=== PATIENT | female | born 1985 | race Caucasian/White ===

== ENCOUNTER 2016-08-03 18:20 | Emergency (ER) | payer BC ==
[2016-08-03] MEDS ORDERED: SODIUM CHLORIDE 0.9% 1,000 ML IV ONE (18:32)
[2016-08-03] MEDS ORDERED: ONDANSETRON 4 MG/2 ML VIAL IVP STA (18:49)
[2016-08-03] MEDS ORDERED: ONDANSETRON 4 MG/2 ML VIAL ONE (18:53)
== END 2016-08-03 20:03 | disposition home or self-care (01) ==
DX: O99.612 Diseases of the digestive system complicating pregnancy, second trimester (principal); K52.9 Noninfective gastroenteritis and colitis, unspecified; Z3A.23 23 weeks gestation of pregnancy

== ENCOUNTER 2016-08-31 14:50 | Outpatient (CLI) | payer BC | END 2016-08-31 14:51 | disposition home or self-care (01) | DX: E03.9 Hypothyroidism, unspecified (principal) ==

== ENCOUNTER 2016-09-08 09:10 | Outpatient (CLI) | payer BC | END 2016-09-08 09:11 | disposition home or self-care (01) | DX: E03.9 Hypothyroidism, unspecified (principal); Z36 Encounter for antenatal screening of mother ==

== ENCOUNTER 2016-09-19 13:59 | Outpatient (CLI) | payer BC ==
[2016-09-19] MEDS ORDERED: ONDANSETRON ODT 4 MG TABLET TL PRN (14:49)
== END 2016-09-19 16:50 | disposition home or self-care (01) ==
DX: O98.813 Other maternal infectious and parasitic diseases complicating pregnancy, third trimester (principal); A08.4 Viral intestinal infection, unspecified; Z3A.29 29 weeks gestation of pregnancy
CPT/HCPCS: 81001; 99212; Q0162

== ENCOUNTER 2016-09-26 21:28 | Outpatient (CLI) | payer BC | END 2016-09-26 21:29 | disposition home or self-care (01) | DX: O23.43 Unspecified infection of urinary tract in pregnancy, third trimester (principal) ==

== ENCOUNTER 2016-11-02 08:52 | Outpatient (CLI) | payer BC | END 2016-11-02 23:59 | DX: Z36 Encounter for antenatal screening of mother (principal) ==

== ENCOUNTER 2016-11-11 08:48 | Outpatient (CLI) | payer BC ==
[~2016-11-11 08:48] MED LIST: SODIUM CHLORIDE FLUSH 0.9% 10 ML SYRINGE IVP ONE
[2016-11-11] MEDS ORDERED: TERBUTALINE 1 MG/ML VIAL SUBQ PRN (09:02)
[2016-11-11] MEDS ORDERED: ONDANSETRON 4 MG/2 ML VIAL IVP PRN (09:02)
[2016-11-11] MEDS ORDERED: SODIUM CHLORIDE FLUSH 0.9% 10 ML SYRINGE IVP PRN (09:03)
[2016-11-11] MEDS ORDERED: fentaNYL 100 MCG/2 ML VIAL IVP PRN (09:03)
[2016-11-11] MEDS ORDERED: SODIUM CHLORIDE FLUSH 0.9% 10 ML SYRINGE IVP SCH (14:00)
== END 2016-11-11 12:05 | disposition home or self-care (01) ==
DX: O32.1XX0 Maternal care for breech presentation, not applicable or unspecified (principal); Z3A.37 37 weeks gestation of pregnancy

== ENCOUNTER 2016-11-22 03:46 | Inpatient (IN) | payer BC ==
[2016-11-22] MEDS ORDERED: SODIUM CHLORIDE FLUSH 0.9% 10 ML SYRINGE IVP ONE (04:12)
[2016-11-22] MEDS ORDERED: fentaNYL 100 MCG/2 ML VIAL IVP PRN (04:13)
[2016-11-22] MEDS ORDERED: ONDANSETRON 4 MG/2 ML VIAL IVP PRN ×2 (04:13→07:59)
[2016-11-22] MEDS ORDERED: PENICILLIN G POTASSIUM 5,000,000 UNIT in SODIUM CHLORIDE 0.9% MINIBAG 100 ML IV SCH (04:13)
[2016-11-22] MEDS ORDERED: OXYTOCIN/LACTATED RINGERS 0 ML IV ONE (04:30)
[2016-11-22] MEDS: LACTATED RINGERS 1,000 ML IV SCH (04:35)
[2016-11-22] MEDS ORDERED: TERBUTALINE 1 MG/ML VIAL SUBQ ONE (04:40)
[2016-11-22] MEDS ORDERED: PENICILLIN G POTASSIUM 2,500,000 UNIT in SODIUM CHLORIDE 0.9% 100ML 100 ML IV SCH (05:00)
[2016-11-22] MEDS ORDERED: OXYTOCIN 10 UNIT/ML VIAL IV ONE (05:15)
[2016-11-22] MEDS ORDERED: SUCCINYLCHOLINE 200 MG/10 ML VIAL IVP ONE (05:15)
[2016-11-22] MEDS ORDERED: ceFAZolin 1 GM VIAL IV ONE (05:15)
[2016-11-22] MEDS ORDERED: fentaNYL 100 MCG/2 ML VIAL IVP ONE ×2 (05:15→08:00)
[2016-11-22] MEDS ORDERED: PROPOFOL 200 MG/20 ML VIAL IVP ONE (05:15)
[2016-11-22] MEDS: MEPERIDINE 50 MG/ML SYRINGE ONE ×2 (06:12→06:25)
[2016-11-22] MEDS ORDERED: LACTATED RINGERS 1,000 ML IV ONE ×2 (06:30→06:40)
[2016-11-22] MEDS ORDERED: fentaNYL 100 MCG/2 ML VIAL ONE (06:47)
[2016-11-22] MEDS ORDERED: MAGNESIUM HYDROXIDE 2,400 MG/30 ML UDC PO PRN (06:58)
[2016-11-22] MEDS ORDERED: OXYTOCIN/LACTATED RINGERS 250 ML IV ONE (06:58)
[2016-11-22] MEDS ORDERED: ONDANSETRON 4 MG/2 ML VIAL ONE (07:56)
[2016-11-22] MEDS: SODIUM CHLORIDE FLUSH 0.9% 10 ML SYRINGE IVP PRN ×2 (08:05→12:41)
[2016-11-22] MEDS: CITALOPRAM 10 MG TABLET PO SCH (11:39)
[2016-11-22] MEDS: THYROID 60 MG TABLET PO SCH (11:39)
[2016-11-22] MEDS: CELECOXIB 100 MG CAPSULE PO SCH ×2 (11:40→23:24)
[2016-11-22] MEDS: ACETAMINOPHEN 500 MG TABLET PO SCH ×2 (11:40→19:51)
[2016-11-22] MEDS: DOCUSATE SODIUM 100 MG CAPSULE PO SCH ×2 (11:41→21:23)
[2016-11-22] MEDS: oxyCODONE 5 MG TABLET PO PRN ×3 (12:40→21:22)
[2016-11-22] MEDS: SIMETHICONE CHEW 80 MG TABLET PO SCH ×2 (14:31→23:24)
[2016-11-23] MEDS: oxyCODONE 5 MG TABLET PO PRN ×5 (04:24→20:40)
[2016-11-23] MEDS: ACETAMINOPHEN 500 MG TABLET PO SCH ×3 (04:38→20:40)
[2016-11-23] MEDS: SIMETHICONE CHEW 80 MG TABLET PO SCH ×3 (08:36→20:40)
[2016-11-23] MEDS: DOCUSATE SODIUM 100 MG CAPSULE PO SCH ×2 (08:37→20:40)
[2016-11-23] MEDS: THYROID 60 MG TABLET PO SCH (08:37)
[2016-11-23] MEDS: CELECOXIB 100 MG CAPSULE PO SCH ×2 (08:37→20:40)
[2016-11-23] MEDS: CITALOPRAM 10 MG TABLET PO SCH (08:37)
[2016-11-23] MEDS: LACTATED RINGERS 1,000 ML IV SCH (16:28)
[2016-11-24] MEDS: ACETAMINOPHEN 500 MG TABLET PO SCH (04:10)
[2016-11-24] MEDS: oxyCODONE 5 MG TABLET PO PRN ×2 (04:10→08:54)
[2016-11-24] MEDS: SIMETHICONE CHEW 80 MG TABLET PO SCH (06:18)
[2016-11-24] MEDS: THYROID 60 MG TABLET PO SCH (06:18)
[2016-11-24] MEDS: CITALOPRAM 10 MG TABLET PO SCH (08:53)
[2016-11-24] MEDS: DOCUSATE SODIUM 100 MG CAPSULE PO SCH (08:54)
[2016-11-24] MEDS: CELECOXIB 100 MG CAPSULE PO SCH (08:54)
== END 2016-11-24 10:05 | disposition home or self-care (01) | DRG 765 ==
PROC: 10S07ZZ Reposition Products of Conception, Via Natural or Artificial Opening (ICD-10-PCS; 2016-11-22)
PROC: 10D00Z1 Extraction of Products of Conception, Low, Open Approach (ICD-10-PCS; principal; 2016-11-22 05:00)
DX: O32.3XX0 Maternal care for face, brow and chin presentation, not applicable or unspecified (principal); O98.313 Other infections with a predominantly sexual mode of transmission complicating pregnancy, third trimester; O76 Abnormality in fetal heart rate and rhythm complicating labor and delivery; O62.3 Precipitate labor; O99.284 Endocrine, nutritional and metabolic diseases complicating childbirth; E03.9 Hypothyroidism, unspecified; O99.344 Other mental disorders complicating childbirth; F41.8 Other specified anxiety disorders; A60.00 Herpesviral infection of urogenital system, unspecified; O99.824 Streptococcus B carrier state complicating childbirth; Z79.899 Other long term (current) drug therapy; Z3A.38 38 weeks gestation of pregnancy; Z37.0 Single live birth; Z87.898 Personal history of other specified conditions

== ENCOUNTER 2019-04-08 08:00 | Outpatient (CLI) | payer BC | END 2019-04-08 08:01 | disposition home or self-care (01) | LOC: LAB.WCP 08:00 | PROVIDERS: ATTEND Physician Assistant Medical | DX: E03.9 Hypothyroidism, unspecified (principal) | CPT/HCPCS: 36415; 84443 ==

== ENCOUNTER 2020-09-24 08:00 | Outpatient (CLI) | payer BC ==
[2020-09-24 18:20] LABS: ALBUMIN 4.4 g/dL (3.2-5.5); ALBUMIN/GLOBULIN RATIO 1.4 (1.0-2.2); BILIRUBIN,TOTAL 0.5 mg/dL (0.2-1.0); CALCIUM 9.1 mg/dL (8.5-10.3); TOTAL PROTEIN 7.5 g/dL (6.7-8.2)
[2020-09-24 18:30] LABS: THYROID STIMULATING HORMONE 5.28 uIU/mL (0.34-5.60)
== END 2020-09-24 23:59 | disposition home or self-care (01) ==
LOC: LAB.WCP 08:00
PROVIDERS: ATTEND Physician Assistant Medical
DX: E03.9 Hypothyroidism, unspecified (principal)
CPT/HCPCS: 36415; 80053; 84443

== ENCOUNTER 2022-07-26 11:34 | Outpatient (CLI) | payer BC ==
[2022-07-26 18:32] LABS: THYROID STIMULATING HORMONE 1.72 uIU/mL (0.34-5.60)
== END 2022-07-26 11:35 | disposition home or self-care (01) ==
LOC: LAB.N 11:34
PROVIDERS: ATTEND Physician Assistant Medical
DX: E03.9 Hypothyroidism, unspecified (principal)
CPT/HCPCS: 36415; 84443

== ENCOUNTER 2024-01-08 10:38 | Outpatient (CLI) | payer BC ==
[2024-01-08 12:25] LABS: BASOPHILS % (AUTO) 0.2 %; EOSINOPHILS % (AUTO) 0.5 %; HCT - HEMATOCRIT 41.1 % (37.0-47.0); HGB - HEMOGLOBIN 14.2 g/dL (12.0-16.0); LYMPHOCYTES # (AUTO) 1.7 10^3/uL (1.5-3.5); LYMPHOCYTES % (AUTO) 25.5 %; MEAN CORPUSCULAR HEMOGLOBIN 31.7 pg (27.0-31.0); MEAN CORPUSCULAR HGB CONC 34.5 g/dL (32.0-36.0); MEAN CORPUSCULAR VOLUME 91.7 fL (81.0-99.0); MEAN PLATELET VOLUME 10.7 fL (7.9-10.8); MONOCYTES # (AUTO) 0.4 10^3/uL (0.0-1.0); MONOCYTES % (AUTO) 5.4 %; NEUTROPHILS # (AUTO) 4.5 10^3/uL (1.5-6.6); NEUTROPHILS % (AUTO) 68.1 %; PLT - PLATELET COUNT 264 10^3/uL (130-450); RED BLOOD COUNT 4.48 10^6/uL (4.20-5.40); RED CELL DISTRIBUTION WIDTH 12.2 % (12.0-15.0); WHITE BLOOD COUNT 6.6 x10^3/uL (4.8-10.8)
[2024-01-08 12:56] LABS: CHOL/HDL RATIO 2.6 (<4.4); CHOLESTEROL 184 mg/dL; HDL CHOLESTEROL 70 mg/dL; LDL CHOLESTEROL,CALCULATED 93 mg/dL; LDL/HDL RATIO 1.3 (<4.4); TRIGLYCERIDES 103 mg/dL (48-352); VLDL CHOLESTEROL 21 mg/dL
[2024-01-08 12:59] LABS: THYROID STIMULATING HORMONE 5.12 uIU/mL (0.34-5.60)
[2024-01-08 13:07] LABS: ALBUMIN 4.5 g/dL (3.2-5.5); ALBUMIN/GLOBULIN RATIO 1.6 (1.0-2.2); ALKALINE PHOSPHATASE 61 IU/L (42-121); ALT ALANINE AMINOTRANSFERASE 14 IU/L (10-60); AST ASPARTATE AMINOTRANSFERASE 20 IU/L (10-42); BILIRUBIN,TOTAL 0.5 mg/dL (0.2-1.0); BUN - BLOOD UREA NITROGEN 15 mg/dL (6-20); CALCIUM 9.7 mg/dL (8.5-10.3); CARBON DIOXIDE - CO2 29 mmol/L (21-32); CHLORIDE 104 mmol/L (101-111); CREATININE 0.8 mg/dL (0.6-1.3); GFR - MDRD 80 (>89); GLUCOSE 58 mg/dL (74-104); POTASSIUM 4.2 mmol/L (3.5-4.5); SODIUM 138 mmol/L (135-145); TOTAL PROTEIN 7.4 g/dL (6.4-8.9)
== END 2024-01-08 10:39 | disposition home or self-care (01) ==
LOC: LAB.N 10:38
PROVIDERS: ATTEND Physician Assistant Medical
DX: Z00.00 Encounter for general adult medical examination without abnormal findings (principal); E03.9 Hypothyroidism, unspecified
CPT/HCPCS: 36415; 80053; 80061; 83721; 84443; 85025